=== PATIENT | male | born 1935 | race Caucasian/White ===

== ENCOUNTER 2023-03-05 11:20 | Inpatient (IN) | payer OTHER ==
[~2023-03-05] VITALS: Ht 165.1 cm; Wt 78.6 kg
[2023-03-05] VITALS (9 sets, daily range): BP systolic 126–173; BP diastolic 59–77; PULSE 56–70; RESP 18–29; TEMP 97.9–98.1
[2023-03-05 11:51] LABS: BASOPHILS % 0.4 % (0.0-2.0); DIFFERENTIAL COMMENT 0; HEMATOCRIT. 40.5 % (42.0-52.0); HEMOGLOBIN. 13.5 g/dL (14.0-18.0); LYMPHOCYTES % 12.5 % (20.0-50.0); MEAN CORPUSCULAR HEMOGLOBIN 33.4 pg (28.0-32.0); MEAN CORPUSCULAR HGB CONC 33.3 g/dL (31.0-37.0); MEAN CORPUSCULAR VOLUME 100.4 fL (80.0-94.0); MEAN PLATELET VOLUME 8.4 fl (7.4-10.4); MONOCYTES % 4.1 % (2.0-8.0); PLATELET 207 x1000/uL (130-400); RED BLOOD CELL COUNT 4.03 mill/uL (4.7-6.1); RED CELL DISTRIBUTION WIDTH 14.9 % (11.6-14.6); WHITE BLOOD COUNT 7.6 x1000/uL (4.5-11.0)
[2023-03-05 12:09] LABS: BG BASE EXCESS 2.5 mmol/L (-2.0-2.0); BG CARBOXYHEMOGLOBIN 1.3 % (0.5-1.5); BG DEOXYHEMOGLOBIN 0.4 % (0.0-5.0); BG FRACTION INSPIRED OXYGEN 100; BG HCO3 ACT 33.2 mmol/L (22.0-26.0); BG METHEMOGLOBIN 0.3 % (0.0-1.5); BG OXYGEN SATURATION 99.6 % (92.0-98.5); BG PCO2 84.1 mmHg (35.0-45.0); BG PH 7.214 (7.350-7.450); BG PO2 226.4 mmHg (75.0-100.0); BG TOTAL HEMOGLOBIN 14.3 g/dL (12.0-18.0); BG VENT MODE MASK - NRB
[2023-03-05] MEDS ORDERED: AZITHROMYCIN 500MG/250ML 250 ML IV ONE (16:15)
[2023-03-05] MEDS ORDERED: CEFTRIAXONE 1GM PREMIX 50 ML IV ONE (16:15)
[2023-03-05] MEDS ORDERED: HYDR-4134 MT (16:27)
[2023-03-05] MEDS ORDERED: METO-385 MT (16:27)
[2023-03-05] MEDS ORDERED: BENA40TA91 PO (16:27)
[2023-03-05] MEDS ORDERED: ATOR40TA70 MT (16:27)
[2023-03-05] MEDS ORDERED: HYDR-4135 MT (16:27)
[2023-03-05] MEDS ORDERED: ACETAMINOPHEN 325MG TABLET PO PRN (16:30)
[2023-03-05] MEDS ORDERED: FUROSEMIDE 40MG/4ML VIAL IVP ONE (16:30)
[2023-03-05] MEDS ORDERED: DOCUSATE SODIUM 100MG CAPSULE PO PRN (16:30)
[2023-03-05] MEDS ORDERED: CLONIDINE 0.1MG TABLET PO PRN (16:30)
[2023-03-05] MEDS ORDERED: HYDROCODONE/ACETAMINOPHEN 5/325MG TABLET PO PRN (16:30)
[2023-03-05] MEDS ORDERED: ONDANSETRON HCL 4MG/2ML INJ IV PRN (16:30)
[2023-03-05] MEDS ORDERED: LORAZEPAM 0.5MG TABLET PO PRN (16:30)
[2023-03-05] MEDS ORDERED: IPRATROPIUM/ALBUTEROL 0.5-3(2.5)MG/3ML NEB HHN PRN (16:30)
[2023-03-05 16:42] LABS: BG BASE EXCESS -0.8 mmol/L (-2.0-2.0); BG CARBOXYHEMOGLOBIN 0.5 % (0.5-1.5); BG DEOXYHEMOGLOBIN 3.1 % (0.0-5.0); BG HCO3 ACT 27.8 mmol/L (22.0-26.0); BG METHEMOGLOBIN 0.2 % (0.0-1.5); BG OXYGEN SATURATION 96.9 % (92.0-98.5); BG OXYHEMOGLOBIN 96.2 % (94.0-97.0); BG PCO2 63.8 mmHg (35.0-45.0); BG PH 7.257 (7.350-7.450); BG PO2 102.5 mmHg (75.0-100.0); BG SAMPLE SITE RIGHT RADIAL; BG TOTAL HEMOGLOBIN 14.2 g/dL (12.0-18.0); BG VENT MODE MASK - BIPAP
[2023-03-05] MEDS ORDERED: HYDRALAZINE 20MG/ML VIAL IV PRN (17:00)
[2023-03-05 17:37] LABS: CHLORIDE 107 mEq/L (98-107); INDEX HEMOLYSI 1 (1-3); INDEX ICTERIC 1 (1-4); INDEX LIPEMIC 1 (1-3); POTASSIUM 4.6 mEq/L (3.5-5.1); SODIUM 145 mEq/L (136-145)
[2023-03-05 17:40] LABS: AMMONIA 26 uMol/L (<32)
[2023-03-05 17:49] LABS: ALANINE AMINOTRANSFERASE 22 IU/L (13-61); ALBUMIN 2.9 g/dL (3.4-5.0); ASPARTATE AMINOTRANSFERASE 19 IU/L (15-37); BILIRUBIN TOTAL 0.6 mg/dL (0.1-1.0); CALCIUM 8.5 mg/dL (8.5-10.1); CARBON DIOXIDE 32 mEq/L (21-32); CREATININE 0.9 mg/dL (0.6-1.3); GLUCOSE 112 mg/dL (70-105); NT PRO B-TYPE NATRIURETIC PEP 1863 pg/mL (5-125); PROTEIN TOTAL 6.7 g/dL (6.0-8.3); UREA NITROGEN BLOOD 24 mg/dL (7-21)
[2023-03-05 18:02] LABS: HEPATITIS B SURFACE ANTIGEN NEGATIVE
[2023-03-05 18:26] LABS: TROPONIN I HIGH SENSITIVITY 821 ng/L (<78)
[2023-03-05 18:30] LABS: HEPATITIS C VIR.AB 0.08 INDEXVAL (0.00-0.80)
[2023-03-05] MEDS: IPRATROPIUM/ALBUTEROL 0.5-3(2.5)MG/3ML NEB HHN SCH (20:50)
[2023-03-05] MEDS: PIPERACILLIN/TAZOBACTAM 3.375 G in DEXTROSE 5% WATER 50 ML IV SCH (21:32)
[2023-03-05] MEDS: METHYLPREDNISOLONE SOD SUCC 40MG/ML (ACT-O-VIAL) IV SCH (21:33)
[2023-03-06] VITALS (16 sets, daily range): BP systolic 102–138; BP diastolic 51–72; PULSE 60–85; RESP 16–34; TEMP 97.5–97.9
[2023-03-06] MEDS: IPRATROPIUM/ALBUTEROL 0.5-3(2.5)MG/3ML NEB HHN SCH ×4 (01:12→20:27)
[2023-03-06 01:16] LABS: TROPONIN I HIGH SENSITIVITY 515 ng/L (<78)
[2023-03-06] MEDS: PIPERACILLIN/TAZOBACTAM 3.375 G in DEXTROSE 5% WATER 50 ML IV SCH ×3 (05:35→21:56)
[2023-03-06] MEDS: METHYLPREDNISOLONE SOD SUCC 40MG/ML (ACT-O-VIAL) IV SCH ×3 (05:35→21:03)
[2023-03-06 05:39] LABS: HEMATOCRIT. 40.9 % (42.0-52.0); HEMOGLOBIN. 13.7 g/dL (14.0-18.0); MEAN CORPUSCULAR HEMOGLOBIN 34.2 pg (28.0-32.0); MEAN CORPUSCULAR HGB CONC 33.5 g/dL (31.0-37.0); MEAN CORPUSCULAR VOLUME 101.9 fL (80.0-94.0); MEAN PLATELET VOLUME 7.9 fl (7.4-10.4); PLATELET 192 x1000/uL (130-400); RED BLOOD CELL COUNT 4.01 mill/uL (4.7-6.1); RED CELL DISTRIBUTION WIDTH 14.8 % (11.6-14.6); WHITE BLOOD COUNT 9.5 x1000/uL (4.5-11.0)
[2023-03-06 05:49] LABS: CHLORIDE 105 mEq/L (98-107); INDEX HEMOLYSI 2 (1-3); INDEX ICTERIC 1 (1-4); INDEX LIPEMIC 1 (1-3); POTASSIUM 4.7 mEq/L (3.5-5.1); SODIUM 142 mEq/L (136-145)
[2023-03-06 05:59] LABS: CALCIUM 8.5 mg/dL (8.5-10.1); CARBON DIOXIDE 31 mEq/L (21-32); GLUCOSE 127 mg/dL (70-105); UREA NITROGEN BLOOD 28 mg/dL (7-21)
[2023-03-06 06:26] LABS: TROPONIN I HIGH SENSITIVITY 345 ng/L (<78)
[2023-03-06 06:49] LABS: DIFFERENTIAL COMMENT 1
[2023-03-06 10:23] LABS: BG CARBOXYHEMOGLOBIN 0.2 % (0.5-1.5); BG DEOXYHEMOGLOBIN 4.9 % (0.0-5.0); BG HCO3 ACT 30.2 mmol/L (22.0-26.0); BG METHEMOGLOBIN 0.3 % (0.0-1.5); BG OXYGEN SATURATION 95.1 % (92.0-98.5); BG OXYHEMOGLOBIN 94.6 % (94.0-97.0); BG PCO2 86.6 mmHg (35.0-45.0); BG PH 7.161 (7.350-7.450); BG PO2 85.9 mmHg (75.0-100.0); BG SAMPLE SITE RIGHT RADIAL; BG TOTAL HEMOGLOBIN 14.1 g/dL (12.0-18.0); BG VENT MODE MASK - BIPAP
[2023-03-06] MEDS: FUROSEMIDE 40MG/4ML VIAL IVP SCH (10:27)
[2023-03-06] MEDS ORDERED: DORZ10DR32 LEFTEYE (12:43)
[2023-03-06] MEDS ORDERED: LATA2.5D14 LEFTEYE (12:44)
[2023-03-06] MEDS ORDERED: TERBUTALINE SULFATE 1MG/ML VIAL SUBCUT NR (13:00)
[2023-03-06] MEDS ORDERED: NALOXONE HCL 0.4MG/ML VIAL IV PRN (13:30)
[2023-03-06 13:33] LABS: PLATELET ESTIMATE NORMAL
[2023-03-06 14:40] LABS: BG BASE EXCESS 3.5 mmol/L (-2.0-2.0); BG CARBOXYHEMOGLOBIN 0.6 % (0.5-1.5); BG DEOXYHEMOGLOBIN 4.4 % (0.0-5.0); BG FRACTION INSPIRED OXYGEN 30; BG HCO3 ACT 32.7 mmol/L (22.0-26.0); BG METHEMOGLOBIN 0.2 % (0.0-1.5); BG OXYGEN SATURATION 95.6 % (92.0-98.5); BG OXYHEMOGLOBIN 94.8 % (94.0-97.0); BG PCO2 72.3 mmHg (35.0-45.0); BG PH 7.273 (7.350-7.450); BG PO2 82.6 mmHg (75.0-100.0); BG SAMPLE SITE RIGHT RADIAL; BG TOTAL HEMOGLOBIN 13.8 g/dL (12.0-18.0); BG TOTAL RESPIRATORY RATE 28 b/min; BG VENT MODE MASK - BIPAP
[2023-03-06] MEDS: DORZOLAM/TIMOLOL 2.23/0.68% OPHTH DROPS 10ML LEFTEYE SCH (17:05)
[2023-03-06] MEDS: LATANOPROST 0.005% OPHTH DROPS 2.5ML LEFTEYE SCH (21:00)
[2023-03-07] VITALS (17 sets, daily range): BP systolic 97–176; BP diastolic 58–81; PULSE 67–118; RESP 20–33; TEMP 97.2–99
[2023-03-07] MEDS: IPRATROPIUM/ALBUTEROL 0.5-3(2.5)MG/3ML NEB HHN SCH ×4 (00:59→20:18)
[2023-03-07] MEDS: PIPERACILLIN/TAZOBACTAM 3.375 G in DEXTROSE 5% WATER 50 ML IV SCH ×3 (06:08→21:49)
[2023-03-07] MEDS: METHYLPREDNISOLONE SOD SUCC 40MG/ML (ACT-O-VIAL) IV SCH ×3 (06:13→21:49)
[2023-03-07] MEDS: FUROSEMIDE 40MG/4ML VIAL IVP SCH (12:06)
[2023-03-07] MEDS: DORZOLAM/TIMOLOL 2.23/0.68% OPHTH DROPS 10ML LEFTEYE SCH ×2 (12:12→17:23)
[2023-03-07 14:32] LABS: BG BASE EXCESS 7.7 mmol/L (-2.0-2.0); BG CARBOXYHEMOGLOBIN 0.2 % (0.5-1.5); BG FRACTION INSPIRED OXYGEN 30; BG HCO3 ACT 34.6 mmol/L (22.0-26.0); BG OXYHEMOGLOBIN 96.8 % (94.0-97.0); BG PCO2 58.2 mmHg (35.0-45.0); BG PH 7.392 (7.350-7.450); BG PO2 95.9 mmHg (75.0-100.0); BG SAMPLE SITE RIGHT RADIAL; BG TOTAL HEMOGLOBIN 14.3 g/dL (12.0-18.0); BG TOTAL RESPIRATORY RATE 28 b/min; BG VENT MODE MASK - BIPAP
[2023-03-07] MEDS ORDERED: [UNRECOGNIZED DRUG - CODE] (17:31)
[2023-03-07] MEDS: LATANOPROST 0.005% OPHTH DROPS 2.5ML LEFTEYE SCH (21:48)
[2023-03-08] VITALS (17 sets, daily range): BP systolic 90–138; BP diastolic 36–103; PULSE 86–118; RESP 18–40; TEMP 98.6–100.8; O2SAT 96–99
[2023-03-08] MEDS: ACETAMINOPHEN 325MG TABLET PO PRN (00:44)
[2023-03-08] MEDS: IPRATROPIUM/ALBUTEROL 0.5-3(2.5)MG/3ML NEB HHN SCH ×4 (01:40→21:16)
[2023-03-08] MEDS: METHYLPREDNISOLONE SOD SUCC 40MG/ML (ACT-O-VIAL) IV SCH ×3 (05:48→21:44)
[2023-03-08] MEDS: PIPERACILLIN/TAZOBACTAM 3.375 G in DEXTROSE 5% WATER 50 ML IV SCH ×3 (05:48→21:44)
[2023-03-08 05:49] LABS: HEMOGLOBIN. 12.3 g/dL (14.0-18.0); MEAN CORPUSCULAR HEMOGLOBIN 33.1 pg (28.0-32.0); MEAN CORPUSCULAR HGB CONC 33.3 g/dL (31.0-37.0); MEAN CORPUSCULAR VOLUME 99.5 fL (80.0-94.0); PLATELET 192 x1000/uL (130-400); RED BLOOD CELL COUNT 3.72 mill/uL (4.7-6.1); RED CELL DISTRIBUTION WIDTH 14.2 % (11.6-14.6); WHITE BLOOD COUNT 7.3 x1000/uL (4.5-11.0)
[2023-03-08 07:07] LABS: DIFFERENTIAL COMMENT 1
[2023-03-08 08:19] LABS: POTASSIUM 3.9 mEq/L (3.5-5.1)
[2023-03-08 08:23] LABS: CALCIUM 8.7 mg/dL (8.5-10.1); CREATININE 1.3 mg/dL (0.6-1.3)
[2023-03-08] MEDS: FUROSEMIDE 40MG/4ML VIAL IVP SCH (09:53)
[2023-03-08] MEDS: DORZOLAM/TIMOLOL 2.23/0.68% OPHTH DROPS 10ML LEFTEYE SCH ×2 (09:54→18:11)
[2023-03-08 12:27] LABS: BG BASE EXCESS 7.9 mmol/L (-2.0-2.0); BG CARBOXYHEMOGLOBIN 0.1 % (0.5-1.5); BG DEOXYHEMOGLOBIN 3.2 % (0.0-5.0); BG HCO3 ACT 33.6 mmol/L (22.0-26.0); BG METHEMOGLOBIN 0.2 % (0.0-1.5); BG OXYGEN SATURATION 96.8 % (92.0-98.5); BG OXYHEMOGLOBIN 96.5 % (94.0-97.0); BG PCO2 50.3 mmHg (35.0-45.0); BG PH 7.442 (7.350-7.450); BG PO2 91.9 mmHg (75.0-100.0); BG SAMPLE SITE RIGHT RADIAL; BG VENT MODE MASK - BIPAP
[2023-03-08 18:47] LABS: PLATELET ESTIMATE NORMAL
[2023-03-08] MEDS: METOPROLOL TARTRATE 25MG TABLET PO SCH (21:44)
[2023-03-08] MEDS: LATANOPROST 0.005% OPHTH DROPS 2.5ML LEFTEYE SCH (21:46)
[2023-03-09] VITALS (16 sets, daily range): BP systolic 114–150; BP diastolic 79–100; PULSE 70–100; RESP 22–39; TEMP 97.6–99.1; O2SAT 96–99
[2023-03-09] MEDS: IPRATROPIUM/ALBUTEROL 0.5-3(2.5)MG/3ML NEB HHN SCH ×4 (01:12→20:15)
[2023-03-09] MEDS: PIPERACILLIN/TAZOBACTAM 3.375 G in DEXTROSE 5% WATER 50 ML IV SCH ×2 (05:06→15:21)
[2023-03-09] MEDS: METHYLPREDNISOLONE SOD SUCC 40MG/ML (ACT-O-VIAL) IV SCH ×3 (05:07→21:23)
[2023-03-09 05:54] LABS: BASOPHILS % 0.1 % (0.0-2.0); HEMOGLOBIN. 13.6 g/dL (14.0-18.0); LYMPHOCYTES % 6.4 % (20.0-50.0); MEAN CORPUSCULAR HEMOGLOBIN 33.6 pg (28.0-32.0); MEAN PLATELET VOLUME 7.9 fl (7.4-10.4); MONOCYTES % 4.9 % (2.0-8.0); NEUTROPHILS % 88.6 % (40.0-76.0); PLATELET 188 x1000/uL (130-400); RED BLOOD CELL COUNT 4.04 mill/uL (4.7-6.1); RED CELL DISTRIBUTION WIDTH 14.1 % (11.6-14.6); WHITE BLOOD COUNT 7.7 x1000/uL (4.5-11.0)
[2023-03-09 06:29] LABS: DIFFERENTIAL COMMENT 1
[2023-03-09 06:30] LABS: ADD RBC MORPHOLOGY YES
[2023-03-09 08:39] LABS: POTASSIUM 3.8 mEq/L (3.5-5.1)
[2023-03-09] MEDS: FUROSEMIDE 40MG/4ML VIAL IVP SCH (08:45)
[2023-03-09] MEDS: METOPROLOL TARTRATE 25MG TABLET PO SCH ×2 (08:46→21:25)
[2023-03-09] MEDS: DORZOLAM/TIMOLOL 2.23/0.68% OPHTH DROPS 10ML LEFTEYE SCH ×2 (08:47→21:23)
[2023-03-09 08:59] LABS: CALCIUM 8.6 mg/dL (8.5-10.1); CREATININE 1.2 mg/dL (0.6-1.3)
[2023-03-09 12:09] LABS: PLATELET ESTIMATE NORMAL
[2023-03-09] MEDS: APIXABAN 5 MG TABLET PO SCH ×2 (15:23→17:00)
[2023-03-10] VITALS (13 sets, daily range): BP systolic 98–150; BP diastolic 72–100; PULSE 79–103; RESP 22–36; TEMP 97–98.1; O2SAT 97–99
[2023-03-10] MEDS: PIPERACILLIN/TAZOBACTAM 3.375 G in DEXTROSE 5% WATER 50 ML IV SCH ×4 (00:23→21:25)
[2023-03-10] MEDS: LATANOPROST 0.005% OPHTH DROPS 2.5ML LEFTEYE SCH ×2 (00:23→21:26)
[2023-03-10] MEDS: IPRATROPIUM/ALBUTEROL 0.5-3(2.5)MG/3ML NEB HHN SCH ×3 (02:01→14:09)
[2023-03-10] MEDS: METHYLPREDNISOLONE SOD SUCC 40MG/ML (ACT-O-VIAL) IV SCH ×3 (05:06→21:26)
[2023-03-10] MEDS: APIXABAN 5 MG TABLET PO SCH ×2 (08:56→17:32)
[2023-03-10] MEDS: FUROSEMIDE 40MG/4ML VIAL IVP SCH (08:57)
[2023-03-10] MEDS: METOPROLOL TARTRATE 25MG TABLET PO SCH ×2 (08:57→21:26)
[2023-03-10] MEDS: DORZOLAM/TIMOLOL 2.23/0.68% OPHTH DROPS 10ML LEFTEYE SCH ×2 (09:06→17:32)
[2023-03-10] MEDS ORDERED: FAMO20TA8 MT (11:12)
[2023-03-10] MEDS ORDERED: P20 MT (11:12)
[2023-03-10] MEDS ORDERED: AMOX1TAB16 MT (11:12)
[2023-03-10] MEDS ORDERED: APIX5TAB PO (11:12)
[2023-03-10 13:56] LABS: BG BASE EXCESS 11.5 mmol/L (-2.0-2.0); BG CARBOXYHEMOGLOBIN 0.1 % (0.5-1.5); BG DEOXYHEMOGLOBIN 1.6 % (0.0-5.0); BG FRACTION INSPIRED OXYGEN 44; BG HCO3 ACT 38.4 mmol/L (22.0-26.0); BG METHEMOGLOBIN 0.3 % (0.0-1.5); BG OXYGEN SATURATION 98.4 % (92.0-98.5); BG PCO2 58.3 mmHg (35.0-45.0); BG PH 7.436 (7.350-7.450); BG PO2 131.5 mmHg (75.0-100.0); BG SAMPLE SITE RIGHT RADIAL; BG TOTAL HEMOGLOBIN 15.1 g/dL (12.0-18.0); BG VENT MODE NASAL CANNULA
[2023-03-11] VITALS (11 sets, daily range): BP systolic 111–152; BP diastolic 69–114; PULSE 77–95; RESP 19–37; TEMP 97.3–98.2
[2023-03-11] MEDS: METHYLPREDNISOLONE SOD SUCC 40MG/ML (ACT-O-VIAL) IV SCH ×3 (06:02→21:46)
[2023-03-11] MEDS: APIXABAN 5 MG TABLET PO SCH ×2 (08:09→17:30)
[2023-03-11] MEDS: FUROSEMIDE 20MG/2ML VIAL IVP SCH (08:09)
[2023-03-11] MEDS: METOPROLOL TARTRATE 25MG TABLET PO SCH ×2 (08:10→21:35)
[2023-03-11] MEDS: DORZOLAM/TIMOLOL 2.23/0.68% OPHTH DROPS 10ML LEFTEYE SCH ×2 (08:21→17:30)
[2023-03-11] MEDS: LATANOPROST 0.005% OPHTH DROPS 2.5ML LEFTEYE SCH (21:35)
[2023-03-12] VITALS: BP 130/91; PULSE 87; RESP 28; TEMP 97.9
[2023-03-12 04:00] VITALS: BP 133/98; PULSE 94; RESP 22; TEMP 97
[2023-03-12] MEDS: ACETAMINOPHEN 325MG TABLET PO PRN (04:22)
[2023-03-12] MEDS: METHYLPREDNISOLONE SOD SUCC 40MG/ML (ACT-O-VIAL) IV SCH ×2 (06:00→13:56)
[2023-03-12 08:00] VITALS: BP 128/82; PULSE 87; RESP 39; TEMP 98.1
[2023-03-12] MEDS: APIXABAN 5 MG TABLET PO SCH (08:22)
[2023-03-12] MEDS: DORZOLAM/TIMOLOL 2.23/0.68% OPHTH DROPS 10ML LEFTEYE SCH (08:22)
[2023-03-12] MEDS: FUROSEMIDE 20MG/2ML VIAL IVP SCH (08:23)
[2023-03-12] MEDS: METOPROLOL TARTRATE 25MG TABLET PO SCH (08:23)
[2023-03-12] MEDS ORDERED: GUAIFENESIN 600MG ER TABLET PO SCH (09:00)
[2023-03-12] MEDS ORDERED: GUAIFENESIN 200MG TABLET PO SCH (09:15)
[2023-03-12] MEDS: GUAIFENESIN-DM 200MG-20MG/10ML UDC PO SCH ×2 (09:51→13:56)
[2023-03-12] MEDS ORDERED: FURO20TA4 MT (10:10)
[2023-03-12] MEDS ORDERED: FUROSEMIDE 20MG/2ML VIAL IVP NR (10:15)
[2023-03-12 11:48] LABS: HEMATOCRIT. 45.2 % (42.0-52.0); HEMOGLOBIN. 14.9 g/dL (14.0-18.0); MEAN CORPUSCULAR HEMOGLOBIN 32.7 pg (28.0-32.0); MEAN CORPUSCULAR HGB CONC 33.1 g/dL (31.0-37.0); MEAN CORPUSCULAR VOLUME 98.8 fL (80.0-94.0); MEAN PLATELET VOLUME 8.2 fl (7.4-10.4); PLATELET 174 x1000/uL (130-400); RED BLOOD CELL COUNT 4.57 mill/uL (4.7-6.1); RED CELL DISTRIBUTION WIDTH 13.9 % (11.6-14.6); WHITE BLOOD COUNT 9.8 x1000/uL (4.5-11.0)
[2023-03-12 12:00] VITALS: BP 128/91; PULSE 68; RESP 29; TEMP 97.5
[2023-03-12 12:04] LABS: CHLORIDE 98 mEq/L (98-107); DIFFERENTIAL COMMENT 1; INDEX HEMOLYSI 1 (1-3); INDEX ICTERIC 1 (1-4); INDEX LIPEMIC 1 (1-3); POTASSIUM 4.2 mEq/L (3.5-5.1); SODIUM 142 mEq/L (136-145)
[2023-03-12 12:09] LABS: CALCIUM 8.7 mg/dL (8.5-10.1); CREATININE 1.1 mg/dL (0.6-1.3); GLUCOSE 167 mg/dL (70-105); UREA NITROGEN BLOOD 69 mg/dL (7-21)
[2023-03-12 12:30] VITALS: BP 128/91; PULSE 77; TEMP 97.5; O2SAT 95
[2023-03-12 13:09] LABS: PLATELET ESTIMATE NORMAL
[2023-03-12 14:26] LABS: CARBON DIOXIDE 42 mEq/L (21-32)
== END 2023-03-12 15:10 | disposition hospice, home (50) | DRG 280 ==
LOC: ER 11:47 → 5EST 12:47 → EDBEDREQSVC 12:51 → EDBEDREQTM 12:51 → EDBEDREQ 12:51 → ENRESERV 14:23
PROVIDERS: ADMIT Internal Medicine; ATTEND Internal Medicine
PROC: 5A09457 Assistance with Respiratory Ventilation, 24-96 Consecutive Hours, Continuous Positive Airway Pressure (ICD-10-PCS; principal; 2023-03-05)
PROC: 5A09357 Assistance with Respiratory Ventilation, Less than 24 Consecutive Hours, Continuous Positive Airway Pressure (ICD-10-PCS; 2023-03-09)
PROC: 5A09357 Assistance with Respiratory Ventilation, Less than 24 Consecutive Hours, Continuous Positive Airway Pressure (ICD-10-PCS; 2023-03-10)
DX: I11.0 Hypertensive heart disease with heart failure (principal); I21.A1 Myocardial infarction type 2; I50.31 Acute diastolic (congestive) heart failure; J96.01 Acute respiratory failure with hypoxia; J96.02 Acute respiratory failure with hypercapnia; G93.40 Encephalopathy, unspecified; J90 Pleural effusion, not elsewhere classified; E87.29 Other acidosis; E78.5 Hyperlipidemia, unspecified; Z66 Do not resuscitate; G47.419 Narcolepsy without cataplexy; H40.9 Unspecified glaucoma; J44.9 Chronic obstructive pulmonary disease, unspecified; Z51.5 Encounter for palliative care; D53.9 Nutritional anemia, unspecified; D75.89 Other specified diseases of blood and blood-forming organs; I48.91 Unspecified atrial fibrillation; Z86.73 Personal history of transient ischemic attack (TIA), and cerebral infarction without residual deficits
CPT/HCPCS: 36415; 36600; 71045; 76604; 80048; 80053; 82140; 82375; 82805; 82962; 83880; 84145; 84484; 85025; 86803; 87340; 93005; 93306; 94640; 94660; 99291; J0360; J0456; J0696; J1940; J2543; J2920; J3105; J7060; A4315